=== PATIENT | male | born 1940 | race Caucasian/White ===

== ENCOUNTER 2018-10-29 10:54 | Emergency (ER) | payer MEDICARE ==
[2018-10-29 11:58] LABS: CHLORIDE,CL 95 mmol/L (98-107); SODIUM,NA 132 mmol/L (136-145)
--- NOTE | 2018-10-29 12:25 | EDM.PDOC ---
ED HPI GENERAL MEDICAL PROBLEM - General Chief Complaint: General Stated Complaint: Weakness Time Seen by Provider: 10/29/18 11:20 Source of Information: Reports: Patient History Limitations: Reports: No Limitations - History of Present Illness INITIAL COMMENTS - FREE TEXT/NARRATIVE: Patient presents to ER after suspecting that his ICD activated, saying that it felt like he was hit by a lightening bolt. Has felt like usual self for the last few days except for nonspecific intermittent lightheadedness. Denies other changes. No new meds/recent illnesses. No fevers/chills. No shortness of breath/increased cough. Denies chest pain. Did have some mild nausea earlier today but that has resolved, it accompanied the lightheaded sensation. No emesis/bowel changes. He took an Nitro this morning when having the nausea. The defibrillator shock happened just prior to him deciding to come to the ER to be checked out. Resting comfortably in the ER. library monitor showing irregular rhythm, no acute ST elevation, P wave present. - Related Data Allergies Allergy/AdvReac Type Severity Reaction Status Date / Time acetaminophen Allergy Anxiety Verified 10/29/18 10:56 [From Contac Day/Night Allergy/Sinus] dextromethorphan Allergy Anxiety Verified 10/29/18 10:56 [From Contac Day/Night Allergy/Sinus] diphenhydramine Allergy Anxiety Verified 10/29/18 10:56 [From Contac Day/Night Allergy/Sinus] pseudoephedrine Allergy Anxiety Verified 10/29/18 10:56 [From Contac Day/Night Allergy/Sinus] Past Medical History HEENT History: Reports: Cataract Cardiovascular History: Reports: Automatic Implantable Cardioverter Defibrillators, Bypass, CAD, Heart Failure, Hypertension Endocrine/Metabolic History: Reports: Diabetes, Type II Social & Family History - Tobacco Use Smoking Status *Q: Former Smoker Tobacco Use Within Last Twelve Months: No - Caffeine Use Caffeine Use: Reports: Coffee, Soda - Alcohol Use Alcohol Use History: Yes Days Per Week of Alcohol Use Comment: 7 Number of Drinks Per Day: 1 - Recreational Drug Use Recreational Drug Use: No Drug Use in Last 12 Months: No ED ROS GENERAL - Review of Systems Review Of Systems: See Below Constitutional: Denies: Fever, Chills, Diaphoresis HEENT: Denies: Sinus Problem, Throat Pain, Vertigo, Vision Change Respiratory: Reports: No Symptoms, Cough. Denies: Shortness of Breath Cardiovascular: Reports: Lightheadedness. Denies: Chest Pain, Dyspnea on Exertion, Edema, Palpitations, Syncope GI/Abdominal: Reports: Nausea. Denies: Abdominal Pain, Diarrhea, Vomiting : Reports: No Symptoms Musculoskeletal: Reports: No Symptoms (no acute changes from baseline) Skin: Reports: No Symptoms Neurological: Reports: Dizziness. Denies: Confusion, Headache, Trouble Speaking , Difficulty Walking, Weakness, Change in Speech Psychiatric: Reports: No Symptoms ED EXAM, GENERAL - Physical Exam Exam: See Below Exam Limited By: No Limitations General Appearance: Alert, WD/WN, No Apparent Distress Eye Exam: Bilateral Eye: EOMI, PERRL Ears: Normal External Exam Nose: No: Nasal Deformity, Nasal Swelling, Nasal Drainage Throat/Mouth: Normal Lips, Normal Voice, No Airway Compromise Head: Atraumatic, Other Neck: Normal Inspection, Supple, Non-Tender, Full Range of Motion Respiratory/Chest: No Respiratory Distress, No Accessory Muscle Use, Chest Non- Tender, Crackles (bilateral bases). No: Rhonchi, Wheezing, Stridor, Accessory Muscle Use, Retractions Cardiovascular: No Edema, Irregularly Irregular GI/Abdominal: Normal Bowel Sounds, Soft, Non-Tender, No Distention (Male) Exam: Deferred Rectal (Males) Exam: Deferred Back Exam: No: CVA Tenderness (L), CVA Tenderness (R), Muscle Spasm, Paraspinal Tenderness, Vertebral Tenderness Extremities: Normal Inspection, Non-Tender, No Pedal Edema, Normal Capillary Refill Neurological: Alert, Oriented, Normal Cognition Psychiatric: Normal Affect, Normal Mood Skin Exam: Warm, Dry, Normal Color EKG INTERPRETATION EKG Date: 10/29/18 Time: 11:01 Rhythm: Other Rate (Beats/Min): 68 Starke: RAD-Right Starke Deviation P-Wave: Present (Varying TX interval noted) QRS: Normal ST-T: Other (No acute ST elevation noted) QT: Normal Comparison: NA - No Prior EKG Course - Vital Signs Last Recorded V/S: Last Vital Signs Temp 36.6 C 10/29/18 10:54 Pulse 68 10/29/18 11:20 Resp 13 10/29/18 11:20 BP 139/81 10/29/18 11:20 Pulse Ox 99 10/29/18 11:20 - Orders/Labs/Meds Orders: Active Orders 24 hr Category Date Time Status EKG Documentation Completion [RC] ASDIRECTED Care 10/29/18 11:04 Active EKG Documentation Completion [RC] STAT Care 10/29/18 11:04 Active Chest 2V [CR] Stat Exams 10/29/18 11:35 Ordered UA W/MICROSCOPIC [URIN] Routine Lab 10/29/18 13:13 Ordered Labs: Laboratory Tests 10/29/18 10/29/18 10/29/18 Range/Units 11:11 11:11 11:11 WBC 6.8 (4.0-10.2) K/uL RBC 4.44 (4.33-5.41) M/uL Hgb 14.7 (13.1-16.8) g/dL Hct 42.0 (39.0-49.0) % MCV 94.6 (84.0-98.0) fL MCH 33.1 (28.2-33.3) pg MCHC 35.0 (31.7-36.0) g/dL RDW 12.8 (11.2-14.1) % Plt Count 141 L (150-350) K/uL Neut % (Auto) 70.2 (45.0-80.0) % Lymph % (Auto) 15.2 (10.0-50.0) % [place] % (Auto) 10.7 (2.0-14.0) % Eos % (Auto) 3.5 (0.0-5.0) % Baso % (Auto) 0.4 (0.0-2.0) % Neut # (Auto) 4.79 (1.40-7.00) K/uL Lymph # (Auto) 1.04 (0.50-3.50) K/uL [place] # (Auto) 0.73 (0.00-1.00) K/uL Eos # (Auto) 0.24 (0.00-0.50) K/uL Baso # (Auto) 0.03 (0.00-0.20) K/uL Sodium 132 L (136-145) mmol/L Potassium 4.6 (3.5-5.1) mmol/L Chloride 95 L (98-107) mmol/L Carbon Dioxide 27.6 (21.0-32.0) mmol/L BUN 20 H (7-18) mg/dL Creatinine 1.16 (0.51-1.17) mg/dL Est Cr Clr Drug Dosing 52.44 mL/min Estimated GFR (MDRD) > 60 mL/min Glucose 309 H (74-106) mg/dL Calcium 8.8 (8.5-10.1) mg/dL Magnesium 1.7 L (1.8-2.4) mg/dL Total Bilirubin 1.0 (0.2-1.0) mg/dL AST 20 (15-37) U/L ALT 26 (12-78) U/L Alkaline Phosphatase 86 (46-116) IU/L Creatine Kinase 62 (26-308) U/L Creatine Kinase Index 3.1 H (0.0-2.5) % CK-MB (CK-2) 1.90 (0.00-3.60) ng/mL Troponin I 0.023 (0.000-0.056) ng/mL NT-Pro-B Natriuret Pep 2860 H (0-125) pg/mL Total Protein 7.6 (6.4-8.2) g/dL Albumin 3.8 (3.4-5.0) g/dL Meds: Medications Discontinued Medications Generic Name Dose Route Start Last Admin Trade Name Freq PRN Reason Stop Dose Admin Magnesium Sulfate/Dextrose 1 100 mls @ 100 mls/hr 10/29/18 12:30 10/29/18 12: 42 gm/ Premix IV 10/29/18 13:29 100 mls/hr ONETIME ONE Administration - Re-Assessments/Exams Free Text/Narrative Re-Assessment/Exam: Low Magnesium noted on labs. Also mild decrease Na/Cl. WBC normal. Troponin normal. BNP over 1999. Chest xray showed increased cardiac size but no changes suggestive of pneumonia/ acute infiltrate/CHF exacerbation. Vital signs stable. Patient pain-free and resting comfortably. EKG showed intermittent pacer spikes. Also intermittent PVCs/PACs. Given the ICD discharge and patient's report of the battery being reportedly low (he was told this on a recent [place] visit), it was felt appropriate to transfer him to a higher LOC where he could have Cardiology evaluation. Patient deferred by [place] Hospitalist . Call then placed to [facility]. Patient accepted for transfer by . IV Mag given to help replenish Mag levels. Patient transported by EMS to [facility] once room was available. Departure - Departure Time of Disposition: 13:14 Disposition: DC/Tfer to Acute Hospital 02 Condition: Good Clinical Impression: Defibrillator discharge, Hypomagnesemia - Discharge Information *PRESCRIPTION DRUG MONITORING PROGRAM REVIEWED*: Not Applicable *COPY OF PRESCRIPTION DRUG MONITORING REPORT IN PATIENT CHIDI: Not Applicable Forms: ED Department Discharge - My Orders Last 24 Hours: My Active Orders 10/29/18 11:04 EKG Documentation Completion [RC] ASDIRECTED EKG Documentation Completion [RC] STAT 10/29/18 11:35 Chest 2V [CR] Stat 10/29/18 13:13 UA W/MICROSCOPIC [URIN] Routine - Assessment/Plan Last 24 Hours: My Active Orders 10/29/18 11:04 EKG Documentation Completion [RC] ASDIRECTED EKG Documentation Completion [RC] STAT 10/29/18 11:35 Chest 2V [CR] Stat 10/29/18 13:13 UA W/MICROSCOPIC [URIN] Routine
== END 2018-10-29 13:55 ==
LOC: LL.ED 10:54
DX: T82.198A Other mechanical complication of other cardiac electronic device, initial encounter (principal); E83.42 Hypomagnesemia; E11.9 Type 2 diabetes mellitus without complications; Z87.891 Personal history of nicotine dependence; Z88.8 Allergy status to other drugs, medicaments and biological substances; Z88.6 Allergy status to analgesic agent
CPT/HCPCS: 36415; 71046; 80053; 81001; 82550; 82553; 83735; 83880; 84484; 85025; 93005; 93010; 96365; 99284; 99285; J3475

== ENCOUNTER 2018-11-08 17:40 | Emergency (ER) | payer MEDICARE, OTHER ==
--- NOTE | 2018-11-08 18:30 | EDM.PDOC ---
ED HPI GENERAL MEDICAL PROBLEM - General Chief Complaint: Cardiovascular Problem Stated Complaint: internall debrillator firing Time Seen by Provider: 11/08/18 17:50 Source of Information: Reports: Patient, Family History Limitations: Reports: No Limitations - History of Present Illness INITIAL COMMENTS - FREE TEXT/NARRATIVE: Patient is a 78-year-old who lives at [place] by himself states that about 2 weeks ago his defibrillator fired a couple times was sent to [facility] and at that time was told that his defibrillator was low on batteries that he had about 6 shots left today is defibrillator fired 4 times unknown etiology the [place] was contacted and events were reported by myself and was instructed that if this is not cardiac in nature as far as MA or electrolyte imbalance that he should be sent straight to [facility]. Patient denies any chest pain at this time Onset: Today Duration: Hour(s):, Recurring Location: Reports: Chest Improves with: Reports: None Worsens with: Reports: None Associated Symptoms: Reports: No Other Symptoms - Related Data Allergies Allergy/AdvReac Type Severity Reaction Status Date / Time acetaminophen Allergy Anxiety Verified 10/29/18 10:56 [From Contac Day/Night Allergy/Sinus] dextromethorphan Allergy Anxiety Verified 10/29/18 10:56 [From Contac Day/Night Allergy/Sinus] diphenhydramine Allergy Anxiety Verified 10/29/18 10:56 [From Contac Day/Night Allergy/Sinus] pseudoephedrine Allergy Anxiety Verified 10/29/18 10:56 [From Contac Day/Night Allergy/Sinus] Home Meds: Home Meds Alogliptin Benzoate [Alogliptin] 25 mg PO DAILY 11/08/18 [History] Apixaban [Eliquis] 5 mg PO BID 11/08/18 [History] Carvedilol [Coreg] 2 tab PO BID 11/08/18 [History] Past Medical History HEENT History: Reports: Cataract Cardiovascular History: Reports: Automatic Implantable Cardioverter Defibrillators, Bypass, CAD, Heart Failure, Hypertension Endocrine/Metabolic History: Reports: Diabetes, Type II - Past Surgical History HEENT Surgical History: Reports: Cataract Surgery Cardiovascular Surgical History: Reports: Coronary Artery Bypass Social & Family History - Caffeine Use Caffeine Use: Reports: Coffee, Soda ED ROS GENERAL - Review of Systems Review Of Systems: See Below Constitutional: Reports: No Symptoms HEENT: Reports: No Symptoms Respiratory: Reports: No Symptoms Cardiovascular: Reports: No Symptoms Endocrine: Reports: No Symptoms GI/Abdominal: Reports: No Symptoms : Reports: No Symptoms Musculoskeletal: Reports: No Symptoms Skin: Reports: No Symptoms Neurological: Reports: No Symptoms Psychiatric: Reports: No Symptoms Hematologic/Lymphatic: Reports: No Symptoms Immunologic: Reports: No Symptoms ED EXAM, GENERAL - Physical Exam Exam: See Below Exam Limited By: No Limitations General Appearance: Alert, WD/WN, No Apparent Distress Ears: Normal External Exam, Normal Canal, Hearing Grossly Normal, Normal TMs Ear Exam: Bilateral Ear: Auricle Normal, Canal Normal, TM normal Nose: Normal Inspection, Normal Mucosa, No Blood Throat/Mouth: Normal Inspection, Normal Lips, Normal Teeth, Normal Gums, Normal Oropharynx, Normal Voice, No Airway Compromise Head: Atraumatic, Normocephalic Neck: Normal Inspection, Supple, Non-Tender, Full Range of Motion Respiratory/Chest: No Respiratory Distress, Lungs Clear, Normal Breath Sounds, No Accessory Muscle Use, Chest Non-Tender Cardiovascular: Regular Rate, Rhythm, Other (EKG shows regular sinus rhythm with sinus arrhythmia) GI/Abdominal: Normal Bowel Sounds, Soft, Non-Tender, No Organomegaly, No Distention, No Abnormal Bruit, No Mass Back Exam: Normal Inspection, Full Range of Motion, NT Extremities: Normal Inspection, Normal Range of Motion, Non-Tender, Normal Capillary Refill, No Pedal Edema Neurological: Alert, Oriented, CN II-XII Intact, Normal Cognition, Normal Gait, Normal Reflexes, No Motor/Sensory Deficits Psychiatric: Normal Affect, Normal Mood Skin Exam: Warm, Dry, Intact, Normal Color, No Rash Lymphatic: No Adenopathy Course - Vital Signs Last Recorded V/S: Last Vital Signs Temp 98.2 F 11/08/18 17:50 Pulse 81 11/08/18 17:43 Resp 14 11/08/18 20:11 BP 157/65 H 11/08/18 20:11 Pulse Ox 99 11/08/18 20:11 - Orders/Labs/Meds Orders: Active Orders 24 hr Category Date Time Status Cardiac Monitoring [RC] . DIRECTED Care 11/08/18 17:54 Active EKG Documentation Completion [RC] ASDIRECTED Care 11/08/18 17:55 Active Chest 2V [CR] Stat Exams 11/08/18 18:04 Taken Labs: Laboratory Tests 11/08/18 11/08/18 11/08/18 Range/Units 18:20 18:20 18:20 WBC 8.4 (4.0-10.2) K/uL RBC 4.65 (4.33-5.41) M/uL Hgb 15.3 (13.1-16.8) g/dL Hct 43.5 (39.0-49.0) % MCV 93.5 (84.0-98.0) fL MCH 32.9 (28.2-33.3) pg MCHC 35.2 (31.7-36.0) g/dL RDW 12.4 (11.2-14.1) % Plt Count 153 (150-350) K/uL Neut % (Auto) 71.9 (45.0-80.0) % Lymph % (Auto) 14.2 (10.0-50.0) % [place] % (Auto) 11.0 (2.0-14.0) % Eos % (Auto) 2.5 (0.0-5.0) % Baso % (Auto) 0.4 (0.0-2.0) % Neut # (Auto) 6.01 (1.40-7.00) K/uL Lymph # (Auto) 1.19 (0.50-3.50) K/uL [place] # (Auto) 0.92 (0.00-1.00) K/uL Eos # (Auto) 0.21 (0.00-0.50) K/uL Baso # (Auto) 0.03 (0.00-0.20) K/uL Sodium 135 L (136-145) mmol/L Potassium 4.5 (3.5-5.1) mmol/L Chloride 99 (98-107) mmol/L Carbon Dioxide 27.1 (21.0-32.0) mmol/L BUN 24 H (7-18) mg/dL Creatinine 1.15 (0.51-1.17) mg/dL Est Cr Clr Drug Dosing 51.23 mL/min Estimated GFR (MDRD) > 60 mL/min Glucose 171 H (74-106) mg/dL Calcium 9.3 (8.5-10.1) mg/dL Total Bilirubin 0.6 (0.2-1.0) mg/dL AST 34 (15-37) U/L ALT 33 (12-78) U/L Alkaline Phosphatase 83 (46-116) IU/L Troponin I 0.196 H* (0.000-0.056) ng/mL Total Protein 7.9 (6.4-8.2) g/dL Albumin 4.2 (3.4-5.0) g/dL Departure - Departure Time of Disposition: 20:41 Disposition: DC/Tfer to Acute Hospital 02 Reason for Transfer *Q: Primary PCI Indicated Condition: Fair Clinical Impression: AICD battery failure Referrals: Heather Schilling MD [Primary Care Provider] - Forms: ED Department Discharge Care Plan Goals: Patient seen with defibrillator failure will be transferred to [facility] for observation and possible battery change I spoke to the [place] and spoke to Dr. Parr system [place] is unable to care for this patient. Send him to [facility]. - My Orders Last 24 Hours: My Active Orders 11/08/18 17:54 Cardiac Monitoring [RC] . DIRECTED 11/08/18 17:55 EKG Documentation Completion [RC] ASDIRECTED 11/08/18 18:04 Chest 2V [CR] Stat - Assessment/Plan Last 24 Hours: My Active Orders 11/08/18 17:54 Cardiac Monitoring [RC] . DIRECTED 11/08/18 17:55 EKG Documentation Completion [RC] ASDIRECTED 11/08/18 18:04 Chest 2V [CR] Stat
[2018-11-08 18:53] LABS: CHLORIDE,CL 99 mmol/L (98-107); SODIUM,NA 135 mmol/L (136-145)
== END 2018-11-08 21:00 ==
LOC: LL.ED 17:40
DX: T82.111A Breakdown (mechanical) of cardiac pulse generator (battery), initial encounter (principal); E11.9 Type 2 diabetes mellitus without complications; I25.10 Atherosclerotic heart disease of native coronary artery without angina pectoris; I11.0 Hypertensive heart disease with heart failure; I50.9 Heart failure, unspecified; Z88.6 Allergy status to analgesic agent; Z88.8 Allergy status to other drugs, medicaments and biological substances; Z79.899 Other long term (current) drug therapy; Z79.01 Long term (current) use of anticoagulants
CPT/HCPCS: 36000; 36415; 71046; 80053; 84484; 85025; 93005; 99284; 99285-25

== ENCOUNTER 2018-11-14 16:21 | Emergency (ER) | payer OTHER ==
[2018-11-14] MEDS ORDERED: Metoprolol Tartrate 5 MG/5 ML SDV IVPUSH ONE (16:32)
[2018-11-14] MEDS ORDERED: Famotidine 20 MG/2 ML SDV IVPUSH ONE (16:32)
--- NOTE | 2018-11-14 16:32 | EDM.PDOC ---
ED HPI GENERAL MEDICAL PROBLEM - General Chief Complaint: General Stated Complaint: Pain around pacemaker, tingling arms and legs Time Seen by Provider: 11/14/18 16:32 Source of Information: Reports: Patient, Family (Daughter), Old Records ([facility] chart/EMR), Other ([facility]) History Limitations: Reports: No Limitations - History of Present Illness INITIAL COMMENTS - FREE TEXT/NARRATIVE: Patient was brought to the emergency room via private automobile by his daughter for evaluation of 3/10 left-sided sharp/ache type chest pain with radiation to the left axilla and associated with moderate paresthesias of his hands bilaterally. Patient has had similar type symptoms for quite some time and has related this to his AICD, however symptoms are somewhat different today. Patient has not taken any medications for his symptoms to this point. Symptoms started at about 14:00 hours this afternoon and lasted initially for about 20-30 minutes, however this has been recurring on an intermittent basis since that time. The patient denies any chest pressure, heart flutter, dizziness , orthostasis, orthopnea, diaphoresis, recent decreased exercise tolerance, or any other anginal-type symptoms. Note, however, that the patient did have several episodes of activation of his AICD both on 10/29 and 11/08 with subsequent transfer to [facility] in [place] with reprogramming of his AICD, increase of his Coreg, and initiation of amiodarone on 10/31 per their EMR records. No recent history of abdominal pain, heartburn, nausea, diarrhea, melena, gross hematochezia, or any food intolerance, including fatty foods, etc. with normal bowel movement earlier this morning. He denies any gross hematuria, colic, or other UTI symptoms. The patient also denies any recent fever, cough, wheezing, dyspnea, etc.. Onset: Today, Sudden Onset Date: 11/14/18 Onset Time: 14:00 Duration: Getting Worse, Intermittent Location: Reports: Chest. Denies: Head, Face, Neck, Abdomen, Back, Pelvis, Upper Extremity, Left, Upper Extremity, Right, Radiates to Quality: Reports: Ache, Same as Previous Episode, Sharp Severity: Moderate Improves with: Reports: None Worsens with: Reports: None Context: Reports: Other (As above). Denies: Sick Contact, Trauma Associated Symptoms: Denies: Confusion, Chest Pain, Cough, Diaphoresis, Fever/ Chills, Headaches, Loss of Appetite, Malaise, Nausea/Vomiting, Shortness of Breath, Syncope, Weakness Treatments ACCOUNT MAINTENANCE REPRESENTATIVE: Reports: Other (see below) (None) Chest Pain Score (Numeric/FACES): 3 - Related Data Allergies Allergy/AdvReac Type Severity Reaction Status Date / Time [id number] Reductase Allergy Muscle Verified 11/14/18 16:28 Inhibitor Weakness Home Meds: Home Meds Alogliptin Benzoate [Alogliptin] 25 mg PO DAILY 11/08/18 [History] Apixaban [Eliquis] 5 mg PO Q12HR 11/08/18 [History] Albuterol [Proventil Neb Soln] 2 puff INH Q4HR PRN 11/14/18 [History] Amiodarone [Cordarone] 400 mg PO DAILY 11/14/18 [History] Aspirin 81 mg PO DAILY 11/14/18 [History] Carvedilol [Coreg] 12.5 mg PO Q12HR 11/14/18 [History] Cholecalciferol (Vitamin D3) [Vitamin D3] 2,000 unit PO DAILY 11/14/18 [History] Furosemide [Lasix] 80 mg PO DAILY PRN 11/14/18 [History] Ketoconazole [Ketoconazole 2%] 1 applic TOP Q12HR 11/14/18 [History] Nitroglycerin [Nitrostat] 0.4 mg SL ASDIRECTED PRN 11/14/18 [History] Pyridoxine HCl [Vitamin B-6] 50 mg PO DAILY 11/14/18 [History] Triamcinolone Acetonide [Triamcinolone Acetonide 0.5%] 1 applic TOP Q12HR [History] metroNIDAZOLE [Metrocream] 1 applic TP Q12HR 11/14/18 [History] Past Medical History HEENT History: Reports: Cataract, Impaired Vision, Other (See Below). Denies: Allergic Rhinitis, Glaucoma, Hard of Hearing, Macular Degeneration, Otitis Media , Retinal Detachment Other HEENT History: Patient wears reading glasses. Cardiovascular History: Reports: Afib, Arrhythmia, Automatic Implantable Cardioverter Defibrillators, Bypass, CAD, Cardiomyopathy, Heart Failure, Heart Murmur, High Cholesterol, Hypertension, PR, Pacemaker, PTCA, Pulmonary Hypertension, Other (See Below). Denies: Aneurysm, Blood Clots/VTE/DVT, PVD, Stents, Syncope Other Cardiovascular History: Pacemaker/AICD. Atrial fibrillation and PACs with current anticoagulation therapy. Left Bundle branch block. Her's degree AV block. Cardiac procedures as below. Ischemic cardiomyopathy with history of initial PR at age 47 with a total of 4 MIs in the past lasting 2011 with CABG at that time. Mild aortic valve stenosis/insufficiency with additional mitral valve insufficiency and tricuspid valve insufficiency by echocardiogram as below. Moderate to severe pulmonary hypertension by echocardiogram. Moderate right atrial dilatation with decreased right ventricular function with additional moderate left atrial enlargement by echocardiogram. Respiratory History: Reports: Intubation, Previous, Pulmonary Fibrosis. Denies : Asthma, COPD, Intubation, Difficult, PE, Pneumothorax, Sleep Apnea Gastrointestinal History: Reports: Cholelithiasis, Diverticulosis, GERD, Helicobacter Pylori, Other (See Below). Denies: Celiac Disease, Chronic Constipation, Chronic Diarrhea, Colon Polyp, Gastritis, GI Bleed, Inflammatory Bowel Disease, Irritable Bowel Syndrome, PUD Other Gastrointestinal History: Previous ascites secondary to his CHF. Genitourinary History: Reports: BPH. Denies: Acute Renal Failure, Chronic Renal Insuffiency, Renal Calculus, Urinary Incontinence, UTI, Recurrent Musculoskeletal History: Reports: Arthritis, Back Pain, Chronic, Fracture, Neck Pain, Chronic, Osteoarthritis, RA, Other (See Below). Denies: SLE Other Musculoskeletal History: Childhood rheumatoid arthritis. Left foot metatarsal fractures 3. Neurological History: Reports: Neuropathy, Diabetic, Neuropathy, Peripheral. Denies: Cerebral Aneurysms, Concussion, CVA, Headaches, Chronic, Head Trauma, Migraines, MS, Parkinson's, Seizure, TIA, Vertigo Psychiatric History: Reports: None. Denies: Abuse, Victim of, ADD, ADHD, Addiction, Anxiety, Depression, Psych Hospitalization(s), PTSD, Suicide Attempt , Suicidal Ideation Endocrine/Metabolic History: Reports: Diabetes, Type II, IDDM, Multinodular Thyroid, Obesity/BMI 30+, Other (See Below). Denies: Diabetes, Type I, Diabetes Mellitus, Type 3c, Hypothyroidism Other Endocrine/Metabolic History: AODM currently treated with medications with previous insulin therapy prior to intentional 60 pound weight loss. Hypomagnesemia. Hematologic History: Denies: Anemia, Blood Transfusion(s), Iron Deficiency Immunologic History: Reports: None. Denies: AIDS, HIV, SLE Oncologic (Cancer) History: Reports: None. Denies: Basal Cell Carcinoma, Bladder, Hodgkin's Lymphoma, Leukemia, Lymphoma, Malignant Melanoma, Non-Hodgkin 's Lymphoma, Prostate, Squamous Cell Carcinoma, Thyroid Dermatologic History: Reports: Eczema, Other (See Below). Denies: Psoriasis Other Dermatologic History: Facial rosacea versus eczema - Infectious Disease History Infectious Disease History: Reports: Chicken Pox, Measles, Mumps, Rheumatic Fever, Scarlet Fever. Denies: C-Difficile, Meningitis, Mononucleosis, MRSA, Rubella, Shingles, TB, VRE - Past Surgical History Head Surgeries/Procedures: Reports: None HEENT Surgical History: Reports: Cataract Surgery, Oral Surgery, Other (See Below). Denies: Adenoidectomy, Eye Surgery, Laser Surgery, LASIK, Myringotomy w Tube(s), Naso-Sinus Surgery, Tonsillectomy Other HEENT Surgeries/Procedures: Bilateral cataract surgery in December 2016. Multiple teeth extractions. Cardiovascular Surgical History: Reports: AICD, Coronary Artery Bypass, Percutaneous Transluminal Angioplasty, Other (See Below). Denies: Coronary Artery Stent, Varicose Other Cardiovascular Surgeries/Procedures: AICD and his maker placement in January 2012. CABG 3 on 11/12/11. PTCA without stent placement in 1998. Respiratory Surgical History: Reports: None. Denies: Thoracentesis GI Surgical History: Reports: Cholecystectomy, Colon, Hernia, Inguinal, Other ( See Below). Denies: Appendectomy, EGD, Polypectomy Other GI Surgeries/Procedures: Paracentesis on 08/02/17. Colonoscopy in about 2002. Inguinal hernia repair at age 15. Male Surgical History: Reports: None. Denies: Circumcision, TURP- Transurethral Resection of Prostate, Vasectomy Endocrine Surgical History: Reports: Thyroid Biopsy, Other (See Below) Other Endocrine Surgeries/Procedures: Multiple previous thyroid biopsies for benign disease last in 2017. - Past Imaging History Past Imaging History: Reports: Cardiac Echo (10/29/18 with significant findings as above including decreased ejection fraction of 35%.), Sleep Study (11/14/18, 02/12/13, and 11/22/11.), Ultrasound (Left arm arterial Doppler studies on .) Social & Family History - Family History HEENT: Reports: Cataract, Glaucoma, Other (See Below). Denies: Macular Degeneration, Retinal Detachment Other HEENT Family History: Sister with cataracts. Mother with glaucoma. Cardiac: Reports: CAD, PR, Other (See Below). Denies: Aneurysm, Blood Clots/VTE /DVT, Heart Failure, High Cholesterol, Hypertension, Syncope Other Cardiac Family History: Parents with fatal PR at age 80. Maternal great uncles 2 with fatal MIs at age 84 and 86 and sister with four-vessel CABG at age 75. Respiratory: Denies: Asthma, COPD, PE, Pneumothorax, Sleep Apnea GI: Reports: None. Denies: Celiac Disease, Cholelithiasis, Colon Polyps, GERD, GI bleed, Inflammatory Bowel Disease, Irritable Bowel Syndrome, PUD : Reports: Renal Calculus, Other (See Below). Denies: Renal Disease/ Insufficiency Other Family History: Father with urolithiasis. OBGYN: Reports: None. Denies: Endometriosis, Recurrent Spontaneous Musculoskeletal: Reports: Arthritis, RA, Other (See Below). Denies: Gout Other Musculoskeletal Family History: Father with rheumatoid arthritis. Neurological: Reports: CVA, Other (See Below). Denies: Alzheimers Disease, Cerebral Aneurysms, Cerebral Palsy, Dementia, Migraines, MS, Neuropathy, Peripheral, Parkinson's, Seizure, TIA Other Neurological Family History: Mother with CVA in her 60s. Psychiatric: Reports: None. Denies: Abuse, Victim of, ADD, ADHD, Anxiety, Psych Hospitalization(s), PTSD, Suicide Attempt Endocrine/Metabolic: Reports: Diabetes, type II, Other (See Below). Denies: Hypothyroidism, IDDM Other Endocrine/Metabolic Family History: Daughter with diabetes mellitus. Hematologic: Reports: None. Denies: Anemia, SLE Immunologic: Reports: None. Denies: AIDS, HIV, SLE Dermatologic: Reports: None. Denies: Eczema, Psoriasis Oncologic: Reports: Brain, Lung, Other (See Below). Denies: Colon, Hodgkin's Lymphoma, Leukemia, Lymphoma, Non-Hodgkin's Lymphoma, Prostate, Skin Other Oncologic Family History: Maternal uncle with lung cancer at age 72 with history of tobacco use. Maternal aunt with fatal brain cancer in her 70s. - Tobacco Use Smoking Status *Q: Former Smoker Tobacco Use Within Last Twelve Months: No Years of Tobacco use: 12 Packs/Tins Daily: 0.1 Packs/Tins Daily Comment: Used tobacco between ages 4 and 26 with one pack per week of cigarettes, pipe, and cigar use Used Tobacco, but Quit: Yes Smoking Cessation Information Provided To Patient: No Second Hand Smoke Exposure: No Second Hand Smoke Education Provided: No - Caffeine Use Caffeine Use: Reports: Coffee (2 cups per day), Soda (1 soda per week), Tea ( Occasional). Denies: Energy Drinks - Alcohol Use Alcohol Use History: Yes Days Per Week of Alcohol Use: 3 Number of Drinks Per Day: 2 Number of Drinks Per Day Comment: Usually mixed drinks. No previous DWIs, problems with alcohol abuse, etc. Total Drinks Per Week: 6 Alcohol Use in Last Twelve Months: Yes - Living Situation & Occupation Living situation: Reports: (2002 from his second ), (His first on 12/23/91 with 7 children from that marriage.) Occupation: Retired (Retired [employer] in 1994.) ED ROS GENERAL - Review of Systems Review Of Systems: ROS reveals no pertinent complaints other than HPI. ED EXAM, GENERAL - Physical Exam Exam: See Below Exam Limited By: Uncooperative General Appearance: Alert, No Apparent Distress Eye Exam: Bilateral Eye: EOMI, Normal Inspection (No Nystagmus. Patient wearing glasses), PERRL Ears: Normal External Exam, Normal Canal, Hearing Grossly Normal, Normal TMs Nose: Normal Inspection, Normal Mucosa, No Blood Throat/Mouth: Normal Inspection, Normal Lips, Normal Teeth, Normal Gums, Normal Oropharynx, Normal Voice, No Airway Compromise. No: Dysphagia, Perioral Cyanosis Head: Atraumatic, Normocephalic. No: Facial Swelling, Facial Tenderness, Sinus Tenderness Neck: Normal Inspection, Supple, Non-Tender, Full Range of Motion, Carotid Bruit (Mild bilateral carotid bruits). No: Lymphadenopathy (L), Lymphadenopathy (R) Respiratory/Chest: No Respiratory Distress, No Accessory Muscle Use, Chest Non- Tender, Rales (Mild bilateral basilar rales). No: Rhonchi, Wheezing, Pleural Rub, Retractions Cardiovascular: Normal Peripheral Pulses, Regular Rate, Rhythm, No Edema, No Gallop, No JVD, No Murmur, No Rub. No: Gallop/S3, Gallop/S4, Extra Beats, Friction Rub Peripheral Pulses: 2+: Radial (L), Radial (R), Dorsalis Pedis (L), Dorsalis Pedis (R) GI/Abdominal: Normal Bowel Sounds, Soft, Non-Tender, No Organomegaly, No Distention, No Abnormal Bruit, No Mass. No: Guarding (Male) Exam: Deferred Rectal (Males) Exam: Deferred Back Exam: Normal Inspection, Full Range of Motion. No: CVA Tenderness (L), CVA Tenderness (R), Muscle Spasm Extremities: Normal Inspection, Normal Range of Motion, Non-Tender, No Pedal Edema, Normal Capillary Refill. No: Kaylynn's Sign Neurological: Alert, Oriented, CN II-XII Intact, Normal Cognition, Normal Gait, Normal Reflexes (Negative Babinski's), No Motor/Sensory Deficits Psychiatric: Normal Affect, Normal Mood Skin Exam: Warm, Dry, Intact, Normal Color, No Rash. No: Diaphoretic, Ecchymosis, Petechiae, Wound/Incision Lymphatic: No Adenopathy EKG INTERPRETATION EKG Date: 11/14/18 Time: 16:24 Rhythm: NSR Rate (Beats/Min): 72 [place]: Normal (Neutral cardiac axis) P-Wave: Enlarged (Moderate Diffuse biphasic P waves with extreme poor R-wave progression in the anterior leads.) QRS: LBBB (QRS interval of 0.12 seconds representing a stable platelike bundle branch block) ST-T: Normal (T-wave inversion in leads 3 and V1.) QT: Normal NH/PQ Interval: 0.20 seconds representing a stable first-degree AV block. Possible left ventricular hypertrophy by voltage. Comparison: No Change (11/08/18) EKG Interpretation Comments: 1. No acute ischemic changes 2. Left bundle branch block 3. First-degree AV block 4. Left atrial enlargement 5. Left ventricular hypertrophy by voltage Course - Vital Signs Last Recorded V/S: Last Vital Signs Temp 36.3 C 11/14/18 16:25 Pulse 58 L 11/14/18 18:45 Resp 12 11/14/18 18:45 BP 163/65 H 11/14/18 18:45 Pulse Ox 96 11/14/18 18:45 Vital Signs - 24 hr 11/14/18 11/14/18 11/14/18 16:25 16:35 16:49 Temperature [ 36.3 C Temporal] Pulse, 65 Peripheral Pulse, 72 72 Peripheral [ Pulse Oximetry] Respiratory 14 18 Rate Blood Pressure 178/76 H Blood Pressure 198/87 H 178/76 H [Left Upper Arm ] O2 Sat by Pulse 96 96 Oximetry 11/14/18 11/14/18 11/14/18 16:50 17:05 17:20 Temperature [ Temporal] Pulse, Peripheral Pulse, 67 57 L 57 L Peripheral [ Pulse Oximetry] Respiratory 14 12 17 Rate Blood Pressure Blood Pressure 166/80 H 162/73 H 150/70 H [Left Upper Arm ] O2 Sat by Pulse 96 97 97 Oximetry 11/14/18 11/14/18 11/14/18 17:40 17:55 18:06 Temperature [ Temporal] Pulse, Peripheral Pulse, 62 59 L 58 L Peripheral [ Pulse Oximetry] Respiratory 15 16 16 Rate Blood Pressure Blood Pressure 185/82 H 189/89 H 181/82 H [Left Upper Arm ] O2 Sat by Pulse 96 96 97 Oximetry 11/14/18 11/14/18 18:30 18:45 Temperature [ Temporal] Pulse, Peripheral Pulse, 60 58 L Peripheral [ Pulse Oximetry] Respiratory 13 12 Rate Blood Pressure Blood Pressure 185/80 H 163/65 H [Left Upper Arm ] O2 Sat by Pulse 97 96 Oximetry - Orders/Labs/Meds Orders: Active Orders 24 hr Category Date Time Status Cardiac Monitoring [RC] . DIRECTED Care 11/14/18 16:32 Active EKG Documentation Completion [RC] ASDIRECTED Care 11/14/18 16:32 Active Oxygen Therapy, ED [RC] PRN Care 11/14/18 16:32 Active Peripheral IV Care [RC] . DIRECTED Care 11/14/18 16:32 Active Pulse Oximetry [RC] CONTINUOUS Care 11/14/18 16:32 Active Up With Assistance [RC] PFP Care 11/14/18 16:32 Active Vital Signs [RC] PFP Care 11/14/18 16:32 Active Chest 1V Frontal [CR] Stat Exams 11/14/18 16:32 Taken Obtain Past Medical Record [OM.PC] Urgent Oth 11/14/18 16:32 Active Peripheral IV Insertion Adult [OM.PC] Stat Oth 11/14/18 16:32 Ordered Resuscitation Status Stat Resus Stat 11/14/18 16:32 Ordered Labs: Laboratory Tests 11/14/18 11/14/18 11/14/18 Range/Units 16:35 16:35 16:35 WBC 9.6 (4.0-10.2) K/uL RBC 4.76 (4.33-5.41) M/uL Hgb 15.6 (13.1-16.8) g/dL Hct 43.9 (39.0-49.0) % MCV 92.2 (84.0-98.0) fL MCH 32.8 (28.2-33.3) pg MCHC 35.5 (31.7-36.0) g/dL RDW 12.3 (11.2-14.1) % Plt Count 166 (150-350) K/uL Neut % (Auto) 77.2 (45.0-80.0) % Lymph % (Auto) 11.1 (10.0-50.0) % [place] % (Auto) 8.8 (2.0-14.0) % Eos % (Auto) 2.7 (0.0-5.0) % Baso % (Auto) 0.2 (0.0-2.0) % Neut # (Auto) 7.41 H (1.40-7.00) K/uL Lymph # (Auto) 1.07 (0.50-3.50) K/uL [place] # (Auto) 0.84 (0.00-1.00) K/uL Eos # (Auto) 0.26 (0.00-0.50) K/uL Baso # (Auto) 0.02 (0.00-0.20) K/uL PT 11.4 (9.5-12.0) SEC INR 1.1 APTT 33.7 H (21.0-31.3) SEC D-Dimer, Quantitative 414 H (0-400) ng/mL Sodium (136-145) mmol/L Potassium (3.5-5.1) mmol/L Chloride (98-107) mmol/L Carbon Dioxide (21.0-32.0) mmol/L BUN (7-18) mg/dL Creatinine (0.51-1.17) mg/dL Est Cr Clr Drug Dosing mL/min Estimated GFR (MDRD) mL/min Glucose (74-106) mg/dL Lactic Acid (0.4-2.0) mmol/L Uric Acid (2.6-7.2) mg/dL Calcium (8.5-10.1) mg/dL Magnesium (1.8-2.4) mg/dL Total Bilirubin (0.2-1.0) mg/dL AST (15-37) U/L ALT (12-78) U/L Alkaline Phosphatase (46-116) IU/L Creatine Kinase (26-308) U/L Creatine Kinase Index (0.0-2.5) % CK-MB (CK-2) (0.00-3.60) ng/mL Troponin I (0.000-0.056) ng/mL NT-Pro-B Natriuret Pep (0-125) pg/mL Total Protein (6.4-8.2) g/dL Albumin (3.4-5.0) g/dL TSH, Ultra Sensitive (0.358-3.740) mIU/mL 11/14/18 11/14/18 Range/Units 16:35 16:35 WBC (4.0-10.2) K/uL RBC (4.33-5.41) M/uL Hgb (13.1-16.8) g/dL Hct (39.0-49.0) % MCV (84.0-98.0) fL MCH (28.2-33.3) pg MCHC (31.7-36.0) g/dL RDW (11.2-14.1) % Plt Count (150-350) K/uL Neut % (Auto) (45.0-80.0) % Lymph % (Auto) (10.0-50.0) % [place] % (Auto) (2.0-14.0) % Eos % (Auto) (0.0-5.0) % Baso % (Auto) (0.0-2.0) % Neut # (Auto) (1.40-7.00) K/uL Lymph # (Auto) (0.50-3.50) K/uL [place] # (Auto) (0.00-1.00) K/uL Eos # (Auto) (0.00-0.50) K/uL Baso # (Auto) (0.00-0.20) K/uL PT (9.5-12.0) SEC INR APTT (21.0-31.3) SEC D-Dimer, Quantitative (0-400) ng/mL Sodium 132 L (136-145) mmol/L Potassium 4.4 (3.5-5.1) mmol/L Chloride 98 (98-107) mmol/L Carbon Dioxide 23.4 (21.0-32.0) mmol/L BUN 19 H (7-18) mg/dL Creatinine 1.05 (0.51-1.17) mg/dL Est Cr Clr Drug Dosing 56.11 mL/min Estimated GFR (MDRD) > 60 mL/min Glucose 205 H (74-106) mg/dL Lactic Acid 1.0 (0.4-2.0) mmol/L Uric Acid 4.3 (2.6-7.2) mg/dL Calcium 9.0 (8.5-10.1) mg/dL Magnesium 1.8 (1.8-2.4) mg/dL Total Bilirubin 0.5 (0.2-1.0) mg/dL AST 24 (15-37) U/L ALT 28 (12-78) U/L Alkaline Phosphatase 79 (46-116) IU/L Creatine Kinase 61 (26-308) U/L Creatine Kinase Index 3.1 H (0.0-2.5) % CK-MB (CK-2) 1.90 (0.00-3.60) ng/mL Troponin I 0.025 (0.000-0.056) ng/mL NT-Pro-B Natriuret Pep 3221 H (0-125) pg/mL Total Protein 7.8 (6.4-8.2) g/dL Albumin 4.1 (3.4-5.0) g/dL TSH, Ultra Sensitive 2.398 (0.358-3.740) mIU/mL Meds: Medications Discontinued Medications Generic Name Dose Route Start Last Admin Trade Name Freq PRN Reason Stop Dose Admin Famotidine 40 mg 11/14/18 16:32 11/14/18 16:52 Pepcid IVPUSH 11/14/18 16:33 40 mg ONETIME ONE Administration Furosemide 60 mg 11/14/18 17:19 11/14/18 17:22 Lasix IVPUSH 11/14/18 17:20 60 mg NOW ONE Administration Metoprolol Tartrate 2.5 mg 11/14/18 16:32 11/14/18 16:49 Lopressor IVPUSH 11/14/18 16:33 2.5 mg ONETIME ONE Administration Nitroglycerin 0.5 gm 11/14/18 18:17 11/14/18 18:36 Nitro-Bid 2% TOP 11/14/18 18:18 0.5 gm ONETIME ONE Administration Sodium Chloride 10 ml 11/14/18 16:32 11/14/18 17:24 Saline Flush FLUSH 10 ml ASDIRECTED PRN Administration Keep Vein Open - Radiology Interpretation Free Text/Narrative:: radiation monitor initially showed sinus rhythm in the 70s with very occasional PACs and no pacemaker beats. Heart rate in the high 50s to low 60s prior to transfer after previous IV Lopressor was given. Chest x-ray, portable, shows evidence of mild centralized CHF with additional pulmonary obstructive disease and probable pulmonary hypertension. Mild to moderate cardiomegaly noted. No pulmonary infiltrates or pneumothorax. Mild aortic valve calcification. Note pacemaker/AICD. Departure - Departure Time of Disposition: 18:55 Disposition: DC/Tfer to Acute Hospital 02 Condition: Good Clinical Impression: D-dimer, elevated, Hypertension Chest pain Qualifiers: Chest pain type: unspecified Qualified Code(s): R07.9 - Chest pain, unspecified Diabetes mellitus Qualifiers: Diabetes mellitus type: type 2 Diabetes mellitus intermediate card tender insulin use: without custodial use Diabetes mellitus complication status: with neurologic complications Diabetes mellitus complication detail: with polyneuropathy Qualified Code(s): E11.42 - Type 2 diabetes mellitus with diabetic polyneuropathy CHF (congestive heart failure) Qualifiers: Heart failure type: combined systolic and diastolic Heart failure chronicity: acute on chronic Qualified Code(s): I50.43 - Acute on chronic combined systolic (congestive) and diastolic (congestive) heart failure Coronary artery disease Qualifiers: Coronary Disease-Associated Artery/Lesion type: bypass graft [place] vs. transplanted heart: [place] heart Associated angina: with unstable angina Qualified Code(s): I25.700 - Atherosclerosis of coronary artery bypass graft(s) , unspecified, with unstable angina pectoris - Discharge Information *PRESCRIPTION DRUG MONITORING PROGRAM REVIEWED*: Not Applicable *COPY OF PRESCRIPTION DRUG MONITORING REPORT IN PATIENT CHIDI: Not Applicable Referrals: Ashlyn Bedoya PA [Primary Care Provider] - Forms: ED Department Discharge, Interfacility Transfer EMTALA Care Plan Goals: Ambulance transfer as below - Problem List & Annotations (1) Chest pain SNOMED Code(s): 91282508 Code(s): R07.9 - CHEST PAIN, UNSPECIFIED Status: Acute Priority: High Onset Date: 11/14/18 Annotation/Comment:: Chest pain protocol initiated immediately upon patient's arrival to the emergency room. Note no ASA or Brilinta were given secondary to his current Eliquis therapy. Patient was started on nitro-paste immediately prior to patient transfer. Initial telephone consultation with [facility] at 17:47 hours with subsequent telephone consultation at 18:[address] Mitchell, hospitalist at [facility] in [place], who does accept the patient for direct admission, with no further treatment recommendations given. Ambulance transfer with photostat operator accompaniment. Blood Pressure still somewhat elevated at time of transfer, however clinical exam and vital signs otherwise stable. Qualifiers: Chest pain type: unspecified Qualified Code(s): R07.9 - Chest pain, unspecified (2) CHF (congestive heart failure) SNOMED Code(s): 14348359 Code(s): I50.9 - HEART FAILURE, UNSPECIFIED Status: Acute Priority: High Onset Date: 11/14/18 Annotation/Comment:: He did receive IV Lasix during her previous hospitalization, however has not taken any Lasix since hospital discharge. No history of dependent edema. High-dose IV Lasix given in the emergency room. Note secondary hyponatremia from his CHF. Note recent echocardiogram on 10/29/18 as above. Qualifiers: Heart failure type: combined systolic and diastolic Heart failure chronicity: acute on chronic Qualified Code(s): I50.43 - Acute on chronic combined systolic (congestive) and diastolic (congestive) heart failure (3) Coronary artery disease SNOMED Code(s): 42440963 Code(s): I25.10 - ATHSCL HEART DISEASE OF [place] CORONARY ARTERY W/O ANG PCTRS Status: Chronic Priority: High Annotation/Comment:: As above with previous history of CABG and PTCA. Note additional history of cardiomyopathy, atrial fibrillation, PACs, current pacemaker/AICD, etc. with recent frequent AICD activations. Qualifiers: Coronary Disease-Associated Artery/Lesion type: bypass graft [place] vs. 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 Further workup depending on his clinical course. (5) Diabetes mellitus SNOMED Code(s): 03715780 Code(s): E11.9 - TYPE 2 DIABETES MELLITUS WITHOUT COMPLICATIONS Status: Chronic Priority: Medium Annotation/Comment:: Stable by patient history. Qualifiers: Diabetes mellitus type: type 2 Diabetes mellitus custodial insulin use: without intermediate card tender use Diabetes mellitus complication status: with neurologic complications Diabetes mellitus complication detail: with polyneuropathy Qualified Code(s): E11.42 - Type 2 diabetes mellitus with diabetic polyneuropathy (6) Hypertension SNOMED Code(s): 04209980 Code(s): I10 - ESSENTIAL (PRIMARY) HYPERTENSION Status: Chronic Priority : Medium Annotation/Comment:: As above Qualifiers: Hypertension type: essential hypertension Qualified Code(s): I10 - Essential (primary) hypertension - Problem List Review Problem List Initiated/Reviewed/Updated: Yes - My Orders Last 24 Hours: My Active Orders 11/14/18 16:32 Cardiac Monitoring [RC] . DIRECTED EKG Documentation Completion [RC] ASDIRECTED Oxygen Therapy, ED [RC] PRN Peripheral IV Care [RC] . DIRECTED Pulse Oximetry [RC] CONTINUOUS Up With Assistance [RC] PFP Vital Signs [RC] PFP Chest 1V Frontal [CR] Stat Obtain Past Medical Record [OM.PC] Urgent Peripheral IV Insertion Adult [OM.PC] Stat Resuscitation Status Stat - Assessment/Plan Last 24 Hours: My Active Orders 11/14/18 16:32 Cardiac Monitoring [RC] . DIRECTED EKG Documentation Completion [RC] ASDIRECTED Oxygen Therapy, ED [RC] PRN Peripheral IV Care [RC] . DIRECTED Pulse Oximetry [RC] CONTINUOUS Up With Assistance [RC] PFP Vital Signs [RC] PFP Chest 1V Frontal [CR] Stat Obtain Past Medical Record [OM.PC] Urgent Peripheral IV Insertion Adult [OM.PC] Stat Resuscitation Status Stat Assessment:: As above Plan: As above. Extensive precautions were given to the patient and his daughter, who are in agreement with the treatment plan. Ambulance transfer with photostat operator accompaniment as above.
[2018-11-14] MEDS: Sodium Chloride 0.9% 10 ML Syringe FLUSH PRN ×2 (16:51→17:24)
[2018-11-14 17:07] LABS: CHLORIDE,CL 98 mmol/L (98-107); SODIUM,NA 132 mmol/L (136-145)
[2018-11-14] MEDS ORDERED: Furosemide 40 MG/4 ML VIAL IVPUSH ONE (17:19)
[2018-11-14] MEDS ORDERED: Nitroglycerin 2% Oint 1 GM UD Packet TOP ONE (18:17)
== END 2018-11-14 18:55 ==
LOC: LL.ED 16:21
DX: I11.0 Hypertensive heart disease with heart failure (principal); I50.43 Acute on chronic combined systolic (congestive) and diastolic (congestive) heart failure; E11.42 Type 2 diabetes mellitus with diabetic polyneuropathy; I25.700 Atherosclerosis of coronary artery bypass graft(s), unspecified, with unstable angina pectoris; I48.91 Unspecified atrial fibrillation; R79.1 Abnormal coagulation profile; E11.40 Type 2 diabetes mellitus with diabetic neuropathy, unspecified; Z88.8 Allergy status to other drugs, medicaments and biological substances; Z79.82 Long term (current) use of aspirin; Z79.899 Other long term (current) drug therapy
CPT/HCPCS: 36415; 71045; 80053; 82550; 82553; 83605; 83735; 83880; 84443; 84484; 84550; 85025; 85379; 85610; 85730; 93005; 93010; 96374; 96375; 99284; 99285; A9270; J1940; J3490